=== PATIENT | male | born 1950 | race Caucasian/White ===

== ENCOUNTER 2017-09-02 09:06 | Outpatient (CLI) | payer MEDICARE, MEDICAID ==
[2017-09-02 11:26] LABS: #Basophils 0.1 thou/uL (0.0-0.2); #Eosinphils 0.2 thou/uL (0.0-0.7); #Lymphocytes 2.6 thou/uL (1.20-3.40); #Monocytes 0.6 thou/uL (0.11-0.59); #Neutrophils 4.2 thou/uL (1.40-6.50); %Basophils 0.7 % (0.0-1.0); %Eosinophils 3.2 % (0.0-10.0); %Lymphocytes 34.3 % (21.0-51.0); %Monocytes 7.4 % (0.0-10.0); Hematocrit 52.2 % (42.0-52.0); Mean Platelet Volume 6.9 fL (7.4-10.4); Red Blood Cell (RBC) Count 5.15 mill/uL (4.70-6.10); White Blood Cell (WBC) Count 7.6 thou/uL (4.8-10.8)
[2017-09-02 11:43] LABS: Bilirubin Negative (Negative); Blood, Urine Negative (Negative); Glucose, Urine (Dipstick) Negative (Negative); Ketone, Urine Negative (Negative); Nitrite Negative (Negative); Protein, Urine (Dipstick) Negative (Neg-Trace); Urobilinogen 0.2 mg/dL (0.2-1.0)
[2017-09-02 11:50] LABS: Bacteria/HPF 1+ HPF (None Seen)
[2017-09-02 11:57] LABS: ALT (SGPT) 30 U/L (8-55); AST (SGOT) 27 U/L (5-34); Alkaline Phosphatase 87 U/L (40-150); Anion Gap 14 mmol/L (10-20); BUN (Urea Nitrogen) 11 mg/dL (8.4-25.7); Bilirubin, Direct 0.2 mg/dL (0.1-0.3); Bilirubin, Total 0.7 mg/dL (0.2-1.2); Calc. Creatinine Clearance 0 mL/min (70-130); Calcium 9.6 mg/dL (7.8-10.44); Carbon Dioxide 25 mmol/L (23-31); Chloride 100 mmol/L (98-107); Estimated GFR-MDRD 61; Protein, Total 8.1 g/dL (5.8-8.1)
[2017-09-02 12:14] LABS: Hyaline Casts/LPF 0-3 HYALINE CAST LPF (0-3 Hyaline); RBC/HPF 0-3 HPF (0-3); Renal Epithelial None Seen HPF (0-3); Transitional Epithelial 0-3 HPF (0-3)
--- NOTE | 2017-09-02 14:23 | CT ---
CT ABDOMEN AND PELVIS WITH AND WITHOUT IV CONTRAST: Date: 09/02/17 HISTORY: Malignant neoplasm of the urinary bladder. Removal of bladder and prostate. Last chemotherapy 4 year s ago. COMPARISON: 09/03/16. FINDINGS: The lung bases are unremarkable. Changes of fatty infiltration of the liver and cholelithiasis again seen. The spleen, pancreas, and adrenal glands are normal. No free air, free fluid, or lymphadenopa thy seen in the abdomen or pelvis. No calculi noted in the kidneys or ureters. No hydroureteronephrosis is seen. There is a small low d ensity lesion in the superior pole of the left kidney, likely cyst. No enhancing renal mass is seen on either side. There are postop changes of bladder and prostate removal. 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 There are vascular calcifications without evidence of aneurysmal dilatation of the abdominal aorta. There are degenerative changes in the spine. No osteolytic or osteoblastic lesions are identified. S mall, fat-containing inguinal hernia, left larger than right. IMPRESSION: 1. Stable exam. 2. Fatty liver. 3. Cholelithiasis. 4. Postop changes in the pelvis. POS: [facility]
--- NOTE | 2017-09-02 14:50 | RAD ---
EXAM: CHEST 2 VIEWS: COMPARISON: 09/03/16. HISTORY: Malignant neoplasm of the bladder. FINDINGS: Normal cardiac silhouette. The pulmonary vessels and hilum are normal. Costophrenic angles are aj ar. Hyperinflation with chronic changes. No consolidation or mass. No pneumothorax or osseous abn ormalities. IMPRESSION: 1. No acute cardiopulmonary process. 2. Chronic changes of the lung parenchyma. POS: [facility]
[2017-09-02] MEDS ORDERED: Iopamidol 370 76% 100 ML VIAL ONE (15:43)
== END 2017-09-02 09:07 | disposition home or self-care (01) ==
LOC: CT 09:06
PROVIDERS: ATTEND Urology
DX: Z08 Encounter for follow-up examination after completed treatment for malignant neoplasm (principal); K76.0 Fatty (change of) liver, not elsewhere classified; K80.20 Calculus of gallbladder without cholecystitis without obstruction; Z85.51 Personal history of malignant neoplasm of bladder; Z90.6 Acquired absence of other parts of urinary tract; Z90.79 Acquired absence of other genital organ(s)
CPT/HCPCS: 36415; 71020; 74178; 80048; 80076; 81001; 85025; 87077; 87086; 87186; 88121

== ENCOUNTER 2018-09-24 12:10 | Outpatient (CLI) | payer MEDICARE, MEDICAID ==
[~2018-09-24 12:10] MED LIST: Iopamidol 370 76% 100 ML VIAL ONE
--- NOTE | 2018-09-24 12:53 | RAD ---
TWO VIEWS CHEST: Comparison: 09-02-13 History: Bladder cancer. Status post removal. FINDINGS: Two views of the chest show normal sized cardiomediastinal silhouette. There is no evidence of consol idation, mass, or pleural effusion. The bones are unremarkable. IMPRESSION: No evidence of acute cardiopulmonary disease. POS: [facility]
[2018-09-24 13:07] LABS: #Basophils 0.1 thou/uL (0.0-0.2); #Eosinphils 0.2 thou/uL (0.0-0.7); #Monocytes 0.5 thou/uL (0.11-0.59); #Neutrophils 4.9 thou/uL (1.40-6.50); %Basophils 1.2 % (0.0-1.0); %Eosinophils 2.4 % (0.0-10.0); %Lymphocytes 25.8 % (21.0-51.0); %Monocytes 6.4 % (0.0-10.0); %Neutrophils 64.3 % (42.0-75.0); Hemoglobin 16.1 g/dL (14.0-18.0); Mean Corpuscular HGB CONC 33.9 g/dL (32.0-36.0); Mean Corpuscular Hemoglobin 31.5 pg (27.0-31.0); Mean Platelet Volume 7.5 fL (7.4-10.4); Platelet Count 222 thou/uL (130-400); RBC Distribution Width 12.2 % (11.5-14.5); Red Blood Cell (RBC) Count 5.09 mill/uL (4.70-6.10); White Blood Cell (WBC) Count 7.6 thou/uL (4.8-10.8)
[2018-09-24 13:10] LABS: ALT (SGPT) 27 U/L (8-55); AST (SGOT) 26 U/L (5-34); Albumin 4.2 g/dL (3.4-4.8); Alkaline Phosphatase 79 U/L (40-150); Anion Gap 13 mmol/L (10-20); BUN (Urea Nitrogen) 12 mg/dL (8.4-25.7); Bilirubin, Direct 0.2 mg/dL (0.1-0.3); Bilirubin, Total 0.6 mg/dL (0.2-1.2); Calc. Creatinine Clearance 0 mL/min (70-130); Carbon Dioxide 27 mmol/L (23-31); Chloride 102 mmol/L (98-107); Estimated GFR-MDRD 66; Potassium 4.3 mmol/L (3.5-5.1); Protein, Total 8.1 g/dL (5.8-8.1); Sodium 138 mmol/L (136-145)
[2018-09-24 13:24] LABS: Bilirubin Negative (Negative); Blood, Urine Negative (Negative); Clarity Cloudy (Clear); Glucose, Urine (Dipstick) Negative (Negative); Leukocyte Small (Negative); Nitrite Positive (Negative); Protein, Urine (Dipstick) Negative (Neg-Trace); Urobilinogen 0.2 mg/dL (0.2-1.0)
[2018-09-24 13:28] LABS: Glucose 193 mg/dL (80-115)
[2018-09-24 13:37] LABS: Bacteria/HPF 3+ HPF (None Seen); RBC/HPF 0-3 HPF (0-3); Squamous Epithelial 0-3 HPF (0-3)
[2018-09-24 13:38] LABS: Oval Fat Bodies/HPF 1+ HPF (None Seen)
--- NOTE | 2018-09-24 15:27 | CT ---
CT ABDOMEN AND PELVIS WITHOUT AND WITH CONTRAST: Date: 09/24/18 COMPARISON: 09/02/17. HISTORY: History of bladder cancer status post bladder removal. TECHNIQUE: Multiple contiguous axial images were obtained in a CT of the abdomen and pelvis without and with IV contrast. Postcontrast images are obtained in the nephrographic and excretory phases. FINDINGS: The patient is status post removal of the urinary bladder. An ileal conduit is seen in the right lowe r quadrant of the abdomen. There are subcentimeter hypodensities in both kidneys which are too small to definitely characterize, but likely represent cysts. No calcifications are seen in either kidney o r either ureter. No hydronephrosis is seen. Contrast is excreted symmetrically into the ureters and t his passes into the patient's ileal conduit. There is a calcification in the gallbladder which represents a gallstone. The liver, adrenal glands, spleen, and pancreas are unremarkable. Atherosclerotic calcifications are seen in the aorta. No abdominal or pelvic lymphadenopathy are pres ent. The large and small bowel are unremarkable. Degenerative changes are seen in the spine. No suspicious osseous lesions are identified. The visuali zed inferior thorax is unremarkable. IMPRESSION: 1. No evidence of recurrent or metastatic disease. 2. Likely small bilateral renal cysts. 3. Cholelithiasis. POS: [facility]
== END 2018-09-24 12:11 | disposition home or self-care (01) ==
LOC: SCSCT 12:10
PROVIDERS: ATTEND Urology
DX: C67.9 Malignant neoplasm of bladder, unspecified (principal); K80.20 Calculus of gallbladder without cholecystitis without obstruction
CPT/HCPCS: 71046; 74178; 80048; 80076; 81001; 82607; 85025; 88121

== ENCOUNTER 2019-09-22 10:35 | Outpatient (CLI) | payer MEDICARE, MEDICAID ==
--- NOTE | 2019-09-22 12:25 | CT ---
CT Abdomen Pelvis W WO con: 09/22/2019 12:00 AM CLINICAL HISTORY: Malignant neoplasm of the urinary bladder. TECHNIQUE: Multiple contiguous axial images were obtained and a CT of the abdomen and pelvis without and with IV contrast. Postcontrast images were obtained in the nephrographic and excretory phases. Sagittal and coronal reformats were performed. COMPARISON: 09/24/2018 FINDINGS: Kidneys and Urinary Tract: Right kidney and ureter: No calculi. No hydronephrosis or hydroureter. No renal mass or other lesions . No urothelial lesions: no filling defect, dilation, stricture or wall thickening. Left kidney and ureter: No calculi. No hydronephrosis or hydroureter. No renal mass or other lesions. No urothelial lesions: no filling defect, dilation, stricture or wall thickening. Urinary bladder: Absent. Patient has an ileal conduit in the right lower quadrant of the abdomen. Remainder of Abdomen and Pelvis: Liver: Diffuse fatty infiltration Gallbladder and biliary system: Calcified gallstones No biliary ductal dilatation. Spleen: Normal. Pancreas: Normal. Adrenal glands: Normal. GI tract: Normal. Abdominal aorta and its major branches: Atherosclerotic calcifications No aneurysm. Peritoneum/retroperitoneum: Normal. No ascites. No adenopathy. Pelvic structures: Normal. No pelvic lymphadenopathy. Body wall and musculoskeletal: Degenerative changes in the spine. Visualized lower thorax: Normal. No pulmonary parenchymal mass or pleural effusion. IMPRESSION: 1. Post surgical changes with diverting ostomy in the right lower quadrant of the abdomen. There is n o evidence of recurrent or metastatic disease. 2. Fatty liver 3. Cholelithiasis
[2019-09-22 14:24] LABS: ALT (SGPT) 40 U/L (8-55); AST (SGOT) 36 U/L (5-34); Albumin 4.5 g/dL (3.4-4.8); Alkaline Phosphatase 92 U/L (40-110); Anion Gap 14 mmol/L (10-20); BUN (Urea Nitrogen) 9 mg/dL (8.4-25.7); Bilirubin, Total 0.7 mg/dL (0.2-1.2); Calc. Creatinine Clearance 0 mL/min (70-130); Calcium 9.7 mg/dL (7.8-10.44); Carbon Dioxide 30 mmol/L (23-31); Chloride 100 mmol/L (98-107); Estimated GFR-MDRD 62; Globulin 3.3 g/dL (2.4-3.5); Glucose 149 mg/dL (80-115); Potassium 4.5 mmol/L (3.5-5.1); Protein, Total 7.8 g/dL (5.8-8.1); Sodium 139 mmol/L (136-145)
== END 2019-09-22 10:36 | disposition home or self-care (01) ==
LOC: SCSCT 10:35
PROVIDERS: ATTEND Urology
DX: C67.9 Malignant neoplasm of bladder, unspecified (principal); K76.0 Fatty (change of) liver, not elsewhere classified; K80.20 Calculus of gallbladder without cholecystitis without obstruction; Z71.6 Tobacco abuse counseling; Z98.890 Other specified postprocedural states
CPT/HCPCS: 36415; 74178; 80053; 82607